=== PATIENT | female | born 1950 ===

== ENCOUNTER 2017-01-23 17:00 | Emergency (ER) | payer OTHER ==
[2017-01-23 17:47] LABS: BASO # 0.1 K/uL (0.0-0.2); BASO % 0.5 % (0.0-2.0); EOS # 0.1 K/uL (0.0-0.7); EOS % 0.5 % (0.0-4.0); HEMOGLOBIN 11.5 g/dL (11.0-16.0); LYMPH # 1.5 K/uL (1.0-4.3); LYMPH % 12.5 % (20.0-40.0); MEAN CELL VOLUME 82.9 fL (81.0-99.0); MEAN CORPUSCULAR HGB CONC 32.6 g/dL (33.0-37.0); MEAN PLATELET VOLUME 9.3 fL (7.2-11.7); MONO # 0.4 K/uL (0.0-0.8); MONO % 2.9 % (0.0-10.0); NEUT % 83.6 % (50.0-75.0); RBC 4.28 Mil/uL (3.80-5.20); RED CELL DISTRIBUTION WIDTH 13.6 % (11.5-14.5); WHITE BLOOD COUNT 11.9 K/uL (4.8-10.8)
[2017-01-23 17:52] LABS: SQUAMOUS EPITHIAL 1 /hpf (0-5); URINE BACTERIA RARE (<OCC); URINE BILIRUBIN NEGATIVE (NEGATIVE); URINE BLOOD NEGATIVE (NEGATIVE); URINE CLARITY Clear (Clear); URINE COLOR Yellow (YELLOW); URINE GLUCOSE (UA) 3+ mg/dL (Normal); URINE LEUKOCYTE ESTERASE NEG Leu/uL (Negative); URINE NITRATE NEGATIVE (NEGATIVE); URINE PROTEIN 2+ mg/dL (NEGATIVE); URINE UROBILINOGEN NORMAL mg/dL (0.2-1.0)
--- NOTE | 2017-01-23 17:55 | C.PDOC ---
History Of Present Illness 66-year-old female, PMHx includes Diabetes, Hypertension and Hypercholesterolemia, presents to the emergency department with complaints of dizziness. Patient states she has been experiencing new onset vertigo-like dizziness that started this morning. Dizziness worsens with position change. Associated symptoms include nausea and non-bloody/non-bilious vomiting. Patient notes intermittent heaviness in right leg with associated weakness. Patient states "everything is numb and hurts at the same time." No other complaints. Denies chest pain or shortness of breath. Time Seen by Provider: 01/23/17 17:40 Chief Complaint (Nursing): GI Problem History Per: Patient History/Exam Limitations: no limitations Onset/Duration Of Symptoms: Hrs Current Symptoms Are (Timing): Still Present Past Medical History Reviewed: Historical Data, Nursing Documentation, Vital Signs Vital Signs: Last Vital Signs Temp 98.3 F 01/23/17 17:03 Pulse 101 H 01/23/17 17:03 Resp 18 01/23/17 17:03 BP Pulse Ox 97 01/23/17 18:13 - Medical History PMH: Diabetes, HTN, Hypercholesterolemia - [facility] Procedures DETACHMENT AT RIGHT 3RD TOE, HIGH, OPEN APPROACH (11/25/15) INFLUENZA VACCINATION (04/06/14) Family History: States: No Known Family Hx - Social History Hx Tobacco Use: No Hx Alcohol Use: No Hx Substance Use: No - Immunization History Hx Tetanus Toxoid Vaccination: No Hx Influenza Vaccination: No Hx Pneumococcal Vaccination: No Review Of Systems Except As Marked, All Systems Reviewed And Found Negative. Constitutional: Negative for: Fever, Chills Cardiovascular: Negative for: Chest Pain, Palpitations Respiratory: Negative for: Shortness of Breath Gastrointestinal: Positive for: Nausea, Vomiting Neurological: Positive for: Dizziness. Negative for: Weakness, Numbness Physical Exam - Physical Exam Appears: Non-toxic, No Acute Distress Skin: Warm, Dry, No Rash Head: Atraumatic, Normacephalic Eye(s): bilateral: Normal Inspection, PERRL, EOMI, left: Other (left, fast nystagmus) Neck: Normal ROM Cardiovascular: Rhythm Regular, No Murmur Respiratory: Normal Breath Sounds, No Accessory Muscle Use Extremity: Normal ROM Neurological/Psych: Oriented x3, Normal Speech, Other (No focal deficit.) Gait: Steady ED Course And Treatment - Laboratory Results Result Diagrams: 01/23/17 17:37 01/23/17 18:38 ECG: Interpreted By Me, Viewed By Me ECG Rhythm: Sinus Rhythm ECG Interpretation: No Acute Changes Rate From EC O2 Sat by Pulse Oximetry: 97 (on RA) Pulse Ox Interpretation: Normal Progress - Data Reviewed Data Reviewed: Lab, Diagnostic imaging, EKG, Old records Disposition - Disposition Disposition Time: 19:00 Condition: STABLE - Clinical Impression Clinical Impression: Vertigo - Scribe Statement The provider has reviewed the documentation as recorded by the Scribe (Shan Lara) All medical record entries made by the Scribe were at my direction and personally dictated by me. I have reviewed the chart and agree that the record accurately reflects my personal performance of the history, physical exam, medical decision making, and the department course for this patient. I have also personally directed, reviewed, and agree with the discharge instructions and disposition. Physician Patient Turnover Patient Signed Over To: Shoshana Mckeon Handoff Comments: GARY CRUZ
--- NOTE | 2017-01-23 18:31 | CT ---
PROCEDURE: CT HEAD WITHOUT CONTRAST. HISTORY: VERTIGO; R LEG WEAKNESS COMPARISON: None available. TECHNIQUE: Axial computed tomography images were obtained through the head/brain without intravenous contrast. Radiation dose: Total exam DLP = 887.96 mGy-cm. This CT exam was performed using one or more of the following dose reduction techniques: Automated exposure control, adjustment of the mA and/or kV according to patient size, and/or use of iterative reconstruction technique. FINDINGS: HEMORRHAGE: No intracranial hemorrhage. BRAIN: Diffuse atrophy with prominence of the ventricles and sulci noted. No mass effect or edema. Dense intracranial atherosclerotic calcifications. Mild scattered periventricular and subcortical white matter hypodensities, which are nonspecific, but often seen with chronic microvascular ischemic disease. Please note that MRI with diffusion imaging is more sensitive in the detection of acute ischemic event. VENTRICLES: No hydrocephalus. CALVARIUM: Unremarkable. PARANASAL SINUSES: Unremarkable as visualized. No significant inflammatory changes. MASTOID AIR CELLS: Unremarkable as visualized. No inflammatory changes. OTHER FINDINGS: None. IMPRESSION: Generalized atrophy. Mild nonspecific white matter changes. Please note that MRI with diffusion imaging is more sensitive in the detection of acute ischemic event.
[2017-01-23 18:46] LABS: ALBUMIN 3.9 g/dL (3.5-5.0)
[2017-01-23 18:48] LABS: GFR AFRICAN-AMERICAN > 60; GFR NON-AFRICAN AMERICAN > 60
[2017-01-23 18:49] LABS: ALB/GLOB RATIO 1.2 (1.0-2.1); ALT/SGPT 38 U/L (9-52); AST/SGOT 27 U/L (14-36); BLOOD UREA NITROGEN 20 mg/dL (7-17); CALCIUM 9.6 mg/dl (8.6-10.4)
[2017-01-23 18:50] LABS: LIPASE 46 U/L (23-300)
[2017-01-23 18:57] LABS: CK-MB 0.56 ng/mL (0.0-3.38)
[2017-01-23 21:04] VITALS: BP 133/74; PULSE 95; RESP 20; TEMP 98.2; O2SAT 98
--- NOTE | 2017-01-24 14:39 | CARD ---
APPROVED REPORT EKG Measurement Heart [id number] ME 136P58 [id number] <Conclusion> Normal sinus rhythm Normal ECG
== END 2017-01-23 21:04 | disposition home or self-care (01) ==
LOC: C.ER 17:00
DX: R42 Dizziness and giddiness (principal)

== ENCOUNTER 2018-09-01 11:44 | Emergency (ER) | payer OTHER ==
[2018-09-01 11:44] VITALS: BMI 29.5
--- NOTE | 2018-09-01 13:16 | RAD ---
Date of service: 09/01/2018 PROCEDURE: CHEST RADIOGRAPH, 1 VIEW HISTORY: SOB COMPARISON: 11/28/2015. FINDINGS: LUNGS: The lungs are well inflated and clear. PLEURA: No pneumothorax or pleural effusion. CARDIOVASCULAR: Mild cardiomegaly. There are aortic atherosclerotic calcifications present. OSSEOUS STRUCTURES: Within normal limits for the patient's age. VISUALIZED UPPER ABDOMEN: Normal. OTHER FINDINGS: None. IMPRESSION: No active pulmonary disease.
[2018-09-01 13:32] LABS: BASO # 0.1 K/uL (0.0-0.2); BASO % 0.5 % (0.0-2.0); EOS # 0.2 K/uL (0.0-0.7); HEMOGLOBIN 10.7 g/dL (11.0-16.0); LYMPH # 3.2 K/uL (1.0-4.3); LYMPH % 28.7 % (20.0-40.0); MEAN CORPUSCULAR HEMOGLOBIN 28.6 pg (27.0-31.0); MEAN CORPUSCULAR HGB CONC 33.4 g/dL (33.0-37.0); MEAN PLATELET VOLUME 8.6 fL (7.2-11.7); MONO # 0.7 K/uL (0.0-0.8); MONO % 5.9 % (0.0-10.0); NEUT % 62.9 % (50.0-75.0); RBC 3.74 Mil/uL (3.80-5.20); RED CELL DISTRIBUTION WIDTH 14.4 % (11.5-14.5); WHITE BLOOD COUNT 11.1 K/uL (4.8-10.8)
[2018-09-01 13:35] LABS: MEAN CELL VOLUME 85.7 fL (81.0-99.0)
[2018-09-01 13:49] LABS: ALB/GLOB RATIO 1.3 (1.0-2.1); ALBUMIN 4.4 g/dL (3.5-5.0); ALT/SGPT 20 U/L (9-52); AST/SGOT 44 U/L (14-36); BLOOD UREA NITROGEN 30 mg/dL (7-17); CALCIUM 10.6 mg/dl (8.6-10.4); GFR NON-AFRICAN AMERICAN 50
[2018-09-01 13:58] LABS: B-TYPE NATRIURETIC PEPTIDE 190 pg/mL (0-900)
[2018-09-01] MEDS ORDERED: Iodixanol 320 MG/ML 100 ML BOTTLE IV ONE (14:51)
--- NOTE | 2018-09-01 16:37 | CT ---
Date of service: 09/01/2018 PROCEDURE: CT Chest with contrast (Pulmonary Angiogram) HISTORY: swelling to left leg, sob, rescent travel COMPARISON: Plain radiograph performed the same day. TECHNIQUE: Axial computed tomography images were obtained of the chest in the pulmonary arterial phase of enhancement. Coronal and sagittal reformatted images were created and reviewed. Intravenous contrast dose: 100 mL Visipaque 320 Radiation dose: Total exam DLP = 520.75 mGy-cm. This CT exam was performed using one or more of the following dose reduction techniques: Automated exposure control, adjustment of the mA and/or kV according to patient size, and/or use of iterative reconstruction technique. FINDINGS: PULMONARY ARTERIES: There are no filling defects in the pulmonary arteries to suggest acute pulmonary embolism. AORTA: No acute findings. No thoracic aortic aneurysm. No aortic atherosclerotic calcification or mural plaque present. LUNGS: The lungs are well inflated and clear. No nodule, mass or pulmonary consolidation. PLEURAL SPACES: No effusion or pneumothorax. HEART: No cardiomegaly. No significant pericardial effusion. LYMPH NODES: No pathologic mediastinal or hilar lymphadenopathy. BONES, CHEST WALL: Mild multilevel degenerative disc disease in the lower thoracic spine. No fracture or destructive lesion OTHER FINDINGS: None. IMPRESSION: No CTA evidence for acute pulmonary embolism. Clear lungs.
[2018-09-01 16:42] VITALS: PULSE 89
--- NOTE | 2018-09-01 16:55 | C.PDOC ---
Time Seen by Provider: 09/01/18 12:07 Chief Complaint (Nursing): Lower Extremity Problem/Injury Past Medical History Vital Signs: Last Vital Signs Temp 97.9 F 09/01/18 14:33 Pulse 89 09/01/18 16:42 Resp 19 09/01/18 16:42 BP 175/85 H 09/01/18 16:42 Pulse Ox 98 09/01/18 16:42 - Medical History PMH: Diabetes, HTN, Hypercholesterolemia Denies: Chronic Kidney Disease - [facility] Procedures DETACHMENT AT RIGHT 3RD TOE, HIGH, OPEN APPROACH (11/25/15) INFLUENZA VACCINATION (04/06/14) Family History: States: Unknown Family Hx - Social History Hx Tobacco Use: No Hx Alcohol Use: No Hx Substance Use: No - Immunization History Hx Tetanus Toxoid Vaccination: No Hx Influenza Vaccination: No Hx Pneumococcal Vaccination: No ED Course And Treatment - Laboratory Results Result Diagrams: 09/01/18 13:22 09/01/18 13:22 Lab Results: D-Dimer, Quantitative 396 ng/mlDDU (0-243) H 09/01/18 14:03 Troponin I < 0.0120 ng/mL (0.00-0.120) 09/01/18 13:22 NT-Pro-B Natriuret Pep 190 pg/mL (0-900) 09/01/18 13:22 Total Bilirubin 0.3 mg/dL (0.2-1.3) 09/01/18 13:22 AST 44 U/L (14-36) H 09/01/18 13:22 ALT 20 U/L (9-52) 09/01/18 13:22 Alkaline Phosphatase 115 U/L (38-126) 09/01/18 13:22 Total Protein 7.8 g/dL (6.3-8.3) 09/01/18 13:22 Albumin 4.4 g/dL (3.5-5.0) 09/01/18 13:22 Globulin 3.4 gm/dL (2.2-3.9) 09/01/18 13:22 Albumin/Globulin Ratio 1.3 (1.0-2.1) 09/01/18 13:22 O2 Sat by Pulse Oximetry: 98 Disposition Discussed With : iBanca Burgos Counseled Patient/Family Regarding: Studies Performed - Disposition Disposition: HOME/ ROUTINE Disposition Time: 16:55 Condition: STABLE
--- NOTE | 2018-09-01 16:58 | C.PDOC ---
History Of Present Illness 67 y/o female with a PMHx of DM presents to the ED, referred from clinic for evaluation of chest pain, SOB, and left leg pain and swelling. Patient has hx of recent long distance travel. She also complains of a headache and generalized body aches. States she has had palpitations for 1 week, associated with SOB, especially at night. Patient describes having pain to her left thigh and feels the leg is more swollen compared to right. Of note, 1 week ago patient was given wrong medications from pharmacy including: levothyroxine, lisinopril, and glyburide. Patient has no hx of hypothyroidism however has been taking the levothyroxine. She arrives today with note from the clinic to r/o PE. Patient denies having headache at this time. She also denies fever, chills, nausea, vomiting, cough, or URI symptoms. Time Seen by Provider: 09/01/18 12:07 Chief Complaint (Nursing): Lower Extremity Problem/Injury History Per: Patient History/Exam Limitations: no limitations Onset/Duration Of Symptoms: Days Current Symptoms Are (Timing): Still Present Past Medical History Reviewed: Historical Data, Nursing Documentation, Vital Signs Vital Signs: Last Vital Signs Temp 97.9 F 09/01/18 14:33 Pulse 89 09/01/18 16:42 Resp 19 09/01/18 16:42 BP 175/85 H 09/01/18 16:42 Pulse Ox 98 09/01/18 16:42 - Medical History PMH: Diabetes, HTN, Hypercholesterolemia Denies: Hypothyroidism, Chronic Kidney Disease Other Surgeries: Tubal ligation - [facility] Procedures DETACHMENT AT RIGHT 3RD TOE, HIGH, OPEN APPROACH (11/25/15) INFLUENZA VACCINATION (04/06/14) Family History: States: Unknown Family Hx - Social History Hx Tobacco Use: No Hx Alcohol Use: No Hx Substance Use: No - Immunization History Hx Tetanus Toxoid Vaccination: No Hx Influenza Vaccination: No Hx Pneumococcal Vaccination: No Review Of Systems Constitutional: Negative for: Fever, Chills Eyes: Negative for: Vision Change Cardiovascular: Positive for: Chest Pain, Palpitations Respiratory: Positive for: Shortness of Breath. Negative for: Cough Gastrointestinal: Negative for: Nausea, Vomiting Musculoskeletal: Positive for: Leg Pain (Left thigh pain and leg swelling) Skin: Negative for: Rash Neurological: Positive for: Headache. Negative for: Weakness, Numbness Physical Exam - Physical Exam Appears: Non-toxic, No Acute Distress, Other (Awake, Alert, Cooperative) Skin: Warm, Dry, No Rash Head: Atraumatic, Normacephalic Eye(s): bilateral: Normal Inspection, PERRL, EOMI Neck: Normal ROM Chest: Symmetrical Cardiovascular: Rhythm Regular, No Murmur Respiratory: Normal Breath Sounds, No Rales, No Rhonchi, No Wheezing Gastrointestinal/Abdominal: Soft, No Tenderness, No Distention Extremity: Normal ROM, Tenderness (to medial aspect of left thigh), No Calf Tenderness, Capillary Refill (< 2 sec), Swelling (+1 pitting edema to bilateral lower extremities, appears symmetric) Pulses: Left Dorsalis Pedis: Normal, Right Dorsalis Pedis: Normal Neurological/Psych: Oriented x3, Normal Speech ED Course And Treatment - Laboratory Results Result Diagrams: 09/01/18 13:22 09/01/18 13:22 Lab Results: D-Dimer, Quantitative 396 ng/mlDDU (0-243) H 09/01/18 14:03 Troponin I < 0.0120 ng/mL (0.00-0.120) 09/01/18 13:22 NT-Pro-B Natriuret Pep 190 pg/mL (0-900) 09/01/18 13:22 Total Bilirubin 0.3 mg/dL (0.2-1.3) 09/01/18 13:22 AST 44 U/L (14-36) H 09/01/18 13:22 ALT 20 U/L (9-52) 09/01/18 13:22 Alkaline Phosphatase 115 U/L (38-126) 09/01/18 13:22 Total Protein 7.8 g/dL (6.3-8.3) 09/01/18 13:22 Albumin 4.4 g/dL (3.5-5.0) 09/01/18 13:22 Globulin 3.4 gm/dL (2.2-3.9) 09/01/18 13:22 Albumin/Globulin Ratio 1.3 (1.0-2.1) 09/01/18 13:22 ECG: Interpreted By Me, Viewed By Me ECG Rhythm: Sinus Rhythm, PVC (frequent) Interpretation Of ECG: No ST elevations or depressions Rate From EC O2 Sat by Pulse Oximetry: 98 (RA) Pulse Ox Interpretation: Normal - Radiology CXR: Read By Radiologist CXR Interpretation: Yes: No Acute Disease, Cardiomegaly (mild). No: Infiltrates - CT Scan/US CTA Chest Other Rad Studies (CT/US): Read By Radiologist, Radiology Report Reviewed CT/US Interpretation: Accession No. : [id number]. Patient Name / ID : BHAVIK ROSE / [id number]. Exam Date : 09/01/2018 15:51:49 ( Approved ). Study Comment : Sex / Age : F / 67Y. Creator : Iva Irizarry. Dictator : Tere Patel MD. Medication Assistant : Music Educator : Tere Patel MD. Approver2 : Report Date : 09/01/2018 16:09:34. My Comment : . Date of service: 09/01/2018. PROCEDURE: CT Chest with contrast (Pulmonary Angiogram). HISTORY: swelling to left leg, sob, rescent travel. COMPARISON: Plain radiograph performed the same day. TECHNIQUE: Axial computed tomography images were obtained of the chest in the pulmonary arterial phase of enhancement. Coronal and sagittal reformatted images were created and reviewed. Intravenous contrast dose: 100 mL Visipaque 320. Radiation dose: Total exam DLP = 520.75 mGy-cm. This CT exam was performed using one or more of the following dose reduction techniques: Automated exposure control, adjustment of the mA and/or kV according to patient size, and/or use of iterative reconstruction technique. FINDINGS: PULMONARY ARTERIES: There are no filling defects in the pulmonary arteries to suggest acute pulmonary embolism. AORTA: No acute findings. No thoracic aortic aneurysm. No aortic atherosclerotic calcification or mural plaque present. LUNGS: The lungs are well inflated and clear. No nodule, mass or pulmonary consolidation. PLEURAL SPACES: No effusion or pneumothorax. HEART: No cardiomegaly. No significant pericardial effusion. LYMPH NODES: No pathologic mediastinal or hilar lymphadenopathy. BONES, CHEST WALL: Mild multilevel degenerative disc disease in the lower thor acic spine. No fracture or destructive lesion. OTHER FINDINGS: None. IMPRESSION: No CTA evidence for acute pulmonary embolism. Clear lungs. Medical Decision Making Medical Decision Making: Impression: Left leg pain/swelling, chest pain, SOB Initial Plan: - Labs - EKG - Chest x-ray - Doppler US, LLE Progress/Updates: Labs reviewed, patient has mildly elevated D-dimer. Pending CTA Chest to rule out PE. Preliminary reading of venous duplex: no DVT to left lower extremity. 17:05 CTA is negative for PE. Discussed findings with patient's PMD, Dr. Burgos. Patient is stable for discharge home, advised to follow up in the clinic for further evaluation. Disposition Discussed With Dr.: Bianca Burgos Counseled Patient/Family Regarding: Studies Performed, Diagnosis, Need For Followup - Disposition Referrals: [facility] [Outside] Disposition: HOME/ ROUTINE Disposition Time: 17:18 Condition: STABLE Instructions: Palpitations Forms: [employer] ([place]raltarian) - POA Present On Arrival: None - Clinical Impression Clinical Impression: Palpitations - Scribe Statement The provider has reviewed the documentation as recorded by the Prudence Fitzgerald Provider Attestation: All medical record entries made by the Lailaibdayo were at my direction and personally dictated by me. I have reviewed the chart and agree that the record accurately reflects my personal performance of the history, physical exam, medical decision making, and the department course for this patient. I have also personally directed, reviewed, and agree with the discharge instructions and disposition.
[2018-09-01 17:29] VITALS: BP 168/89; RESP 18; TEMP 98; O2SAT 100
--- NOTE | 2018-09-02 11:51 | CARD ---
APPROVED REPORT Date of service: 09/01/2018 EKG Measurement Heart [id number] [id number] <Conclusion> Sinus rhythm with occasional premature ventricular complexes Minimal voltage criteria for LVH, may be normal variant Borderline ECG
--- NOTE | 2018-09-04 21:30 | VASCLAB ---
Date of service: 09/01/2018 PROCEDURE: Left Lower Extremity Venous Duplex Exam. HISTORY: swelling and pain after travel PRIORS: None. TECHNIQUE: Left common femoral, femoral, popliteal and posterior tibial, peroneal and great saphenous veins were evaluated. Flow was assessed with color Doppler, compressibility, assessment of phasic flow and augmentation response. Report prepared by MARLENA Berrios, RVT FINDINGS: LEFT: 1. Common Femoral Vein: 1.1. Compressibility - Fully compressible: Thrombus - None : Flow - Phasic: Augmentation -Normal: Reflux - None. 2. Femoral Vein: 2.1. Compressibility - Fully compressible: Thrombus - None: Flow - Phasic: Augmentation -Normal: Reflux - None. 3. Popliteal Vein: 3.1. Compressibility - Fully compressible: Thrombus - None: Flow - Phasic: Augmentation -Normal: Reflux - None. 4. Posterior Tibial Vein: 4.1. Compressibility - Fully compressible: Thrombus - None: Flow - Phasic: Augmentation -Normal: Reflux - None. 5. Peroneal Vein: 5.1. Compressibility - Fully compressible: Thrombus - None: Flow - Phasic: Augmentation -Normal: Reflux - None. 6. Great Saphenous Vein: 6.1. Compressibility - Fully compressible: Thrombus - None: Flow - Phasic: Augmentation - Normal: Reflux - None. OTHER FINDINGS: IMPRESSION: No evidence of deep or superficial vein thrombosis of the left lower extremity with excellent venous flow. Normal valve function noted of the left side. Normal venous flow noted in the right common femoral vein.
== END 2018-09-01 17:54 | disposition home or self-care (01) ==
LOC: C.ER 11:44
DX: R00.2 Palpitations (principal)
CPT/HCPCS: 71045; 71275; 80053; 83880; 84484; 85025; 85378; 87804; 93005; 93971; 99285; Q9967